=== PATIENT | female | born 1985 | race Caucasian/White ===

== ENCOUNTER 2019-05-05 15:26 | Emergency (ER) | payer OTHER ==
[2019-05-05] MEDS ORDERED: ONDANSETRON 4 MG/2 ML VIAL IVPUSH ONE (15:40)
[2019-05-05] MEDS ORDERED: SODIUM CHLORIDE 1,000 ML IV STA (15:40)
--- NOTE | 2019-05-05 15:40 | PDOC ---
Rapid Medical Evaluation Time Seen by Provider: 05/05/19 15:29 Medical Evaluation: 05/05/19 15:38 CC: epigastric pain with N/V/D x1 day PE: suprapubic tenderness Orders: labs, urine Patient will proceed to ED for further evaluation. Discharge Disposition - Diagnosis Abdominal pain - Referrals - Patient Instructions - Post Discharge Activity
[2019-05-05 15:41] VITALS: BP 111/71; PULSE 94; TEMP 98.8; BMI 20.2
[2019-05-05] MEDS ORDERED: FAMOTIDINE 20 MG/50 ML IVPB 20 MG/50 ML MG IVPB ONE ×2 (16:14→16:33)
[2019-05-05] MEDS ORDERED: MAG HYDROX/AL HYDROX/SIMETH -MYLANTA- ORAL SUSPENSION PO ONE (16:14)
[2019-05-05 16:33] LABS: BASO % 0.2 % (0-2.0); EOS % 0.1 % (0-4.5); HEMATOCRIT 45.4 % (32.4-45.2); HEMOGLOBIN 14.8 GM/dL (10.7-15.3); LYMPH % 10.4 % (8-40); MCH 32.2 pg (25.7-33.7); MCHC 32.5 g/dl (32.0-36.0); MEAN CELL VOLUME 98.9 fl (80-96); MEAN PLT VOLUME 10.9 fl (7.5-11.1); MONO % 3.6 % (3.8-10.2); NEUT % 85.7 % (42.8-82.8); PLATELET COUNT 284 K/MM3 (134-434); RBC 4.59 M/mm3 (3.60-5.2); RDW 14.2 % (11.6-15.6); WHITE BLOOD COUNT 7.3 K/mm3 (4.0-10.0)
[2019-05-05] MEDS ORDERED: ONDANSETRON 4 MG/2 ML VIAL ONE (16:33)
[2019-05-05] MEDS ORDERED: MAG HYDROX/AL HYDROX/SIMETH 30 ML UNIT-DOSE CUP ONE (16:33)
[2019-05-05 16:39] LABS: URINE APPEARANCE CLOUDY; URINE BILIRUBIN NEGATIVE (NEGATIVE); URINE COLOR DK YELLOW; URINE GLUCOSE (UA) NEGATIVE (NEGATIVE); URINE KETONE 1+ (NEGATIVE); URINE LEUK ESTERASE NEGATIVE (NEGATIVE); URINE NITRITE NEGATIVE (NEGATIVE); URINE PROTEIN TRACE (NEGATIVE)
--- NOTE | 2019-05-05 16:41 | PDOC ---
History of Present Illness - General History Source: Patient Exam Limitations: No Limitations - History of Present Illness Initial Comments: 05/05/19 16:37 Patient is a 34-year-old female who presents to the ED with complaint of epigastric abdominal pain since yesterday. She states she has a history of chronic gastritis and was taking open resolved but got in 2018 and stopped taking it. She never resumed it. She does admit to several episodes of vomiting and had a few episodes of diarrhea today. She denies any blood in her stool or vomitus. She denies any fevers or chills. The patient states her pain is primarily in her epigastrium. The patient does admit to some suprapubic abdominal tenderness but denies any dysuria or hematuria. She denies any vaginal complaints. <Caterina Earl - Last Filed: 05/05/19 18:08> <Pamella Ko - Last Filed: 05/05/19 18:17> - General Chief Complaint: Pain, Acute Stated Complaint: ABD PAIN/VOMITING Time Seen by Provider: 05/05/19 15:29 Past History - Past Medical History COPD: No GI Disorders: Yes (gastritis) - Surgical History Abdominal Surgery: (b/l filopian tubes removed) - Psycho Social/Smoking Cessation Hx Smoking History: Never smoked Hx Alcohol Use: No Drug/Substance Use Hx: No <Caterina Earl - Last Filed: 05/05/19 18:08> <Pamella Ko - Last Filed: 05/05/19 18:17> - Past Medical History Allergies/Adverse Reactions: Allergies Allergy/AdvReac Type Severity Reaction Status Date / Time oxycodone Allergy Verified 05/05/19 15:41 Home Medications: Ambulatory Orders Famotidine [Pepcid] 20 mg PO BID #14 tablet 05/05/19 Omeprazole 20 mg PO DAILY #14 tablet. 05/05/19 Review of Systems - Review of Systems Comments:: 05/05/19 16:38 - Review of Systems Able to Perform ROS?: Yes Constitutional: No: Fever, Chills, Loss of Appetite, Night Sweats, Weakness HEENTM: No: Eye Pain, Vision changes, Ear Pain, Throat Pain, Throat Swelling, Mouth Pain, Difficulty Swallowing Respiratory: No: Cough, Shortness of Breath, Wheezing, Sputum Production Cardiac (ROS): No: Chest Pain, Chest Tightness, Palpitations, Irregular Heart Beat, Edema ABD/GI: Positive: Nausea, Vomiting, Abdominal Pain, Diarrhea : No Dysuria, No Hematuria, No Frequency, No Urgency Musculoskeletal: No: Muscle Pain, Back Pain, Joint Pain, Muscle Weakness, Neck Pain Integumentary: No: Lesions, Rash Neurological: No: Headache, Numbness, Tingling, Weakness, Speech Difficulties <Caterina Earl - Last Filed: 05/05/19 18:08> *Physical Exam - Vital Signs Last Vital Signs Temp Pulse Resp BP Pulse Ox 98.8 F 94 H 16 111/71 95 05/05/19 15:37 05/05/19 15:37 05/05/19 15:37 05/05/19 15:37 05/05/19 15:37 - Physical Exam 05/05/19 16:39 - Physical Exam General Appearance: Nourished, Appropriately Dressed, No Distress HEENT: EOMI, Normal Voice, No Muffled/Hoarse voice, No Nasal Congestion, No Rhinorrhea, Hearing Grossly Normal Neck: Supple, No Lymphadenopathy (R), No Lymphadenopathy (L), No Rigidity, No Decreased range of motion Respiratory/Chest: Lungs Clear, Normal Breath Sounds. No Respiratory Distress, No Accessory Muscle Use Cardiovascular: Regular Rhythm, Regular Rate, S1, S2 Gastrointestinal/Abdominal: Normal Bowel Sounds, Soft. No Guarding, No Rebound , No Rigidity; significant epigastric abdominal tenderness to palpation. Mild suprapubic abdominal tenderness to palpation. No rebound or rigidity. Moderate voluntary guarding. Musculoskeletal: Normal Inspection. No Decreased Range of Motion Extremity: Normal Capillary Refill, Normal Inspection Integumentary: Normal Color, Dry. No Rash Neurologic: supply chain tech II-XII NML intact, Fully Oriented, Alert, Normal Mood/Affect, Normal Response <Caterina Earl D - Last Filed: 05/05/19 18:08> - Vital Signs Last Vital Signs Temp Pulse Resp BP Pulse Ox 98.8 F 94 H 16 111/71 95 05/05/19 15:37 05/05/19 15:37 05/05/19 15:37 05/05/19 15:37 05/05/19 15:37 <Pamella Ko - Last Filed: 05/05/19 18:17> ED Treatment Course - LABORATORY CBC & Chemistry Diagram: 05/05/19 15:50 05/05/19 15:50 <Caterina Earl - Last Filed: 05/05/19 18:08> - LABORATORY CBC & Chemistry Diagram: 05/05/19 15:50 05/05/19 15:50 - ADDITIONAL ORDERS Additional order review: Laboratory Results 05/05/19 05/05/19 15:50 15:50 Sodium 137 Potassium 4.1 Chloride 99 Carbon Dioxide 29 Anion Gap 8 BUN 21.0 H Creatinine 0.9 Est GFR (CKD-EPI)AfAm 97.37 Est GFR (CKD-EPI)NonAf 84.01 Random Glucose 100 Calcium 10.0 Total Bilirubin 1.0 AST 23 ALT 31 Alkaline Phosphatase 106 Total Protein 8.1 Albumin 4.2 Lipase 102 Urine Color Dk yellow Urine Appearance Cloudy Urine pH 5.0 Ur Specific [place] 1.038 H Urine Protein Trace Urine Glucose (UA) Negative Urine Ketones 1+ H Urine Blood Negative Urine Nitrite Negative Urine Bilirubin Negative Urine Urobilinogen 1.0 Ur Leukocyte Esterase Negative 05/05/19 15:50 RBC 4.59 MCV 98.9 H MCHC 32.5 RDW 14.2 MPV 10.9 Neutrophils % 85.7 H Lymphocytes % 10.4 Monocytes % 3.6 L Eosinophils % 0.1 Basophils % 0.2 - Medications Given in the ED: ED Medications Discontinued Medications Generic Name Dose Route Start Last Admin Trade Name Freq PRN Reason Stop Dose Admin Al Hydroxide/Mg Hydroxide 30 ml 05/05/19 16:14 05/05/19 17:15 Mylanta Suspension - PO 05/05/19 16:15 30 ml ONCE ONE Administration Sodium Chloride 1,000 mls @ 1,000 mls/hr 05/05/19 15:40 05/05/19 17:15 Normal Saline - IV 05/05/19 16:39 1,000 mls/hr ASDIR STA Administration Famotidine/Sodium Chloride 20 mg in 50 mls @ 100 mls/hr 05/05/19 16:14 17:15 Pepcid 20 Mg Premixed Ivpb - IVPB 05/05/19 16:43 100 mls/hr ONCE ONE Administration Ondansetron HCl 4 mg 05/05/19 15:40 05/05/19 17:15 Zofran Injection IVPUSH 05/05/19 15:41 4 mg ONCE ONE Administration <Pamella Ko - Last Filed: 05/05/19 18:17> Medical Decision Making - Medical Decision Making 05/05/19 16:40 Assessment: Patient is a 34-year-old female with epigastric abdominal pain, vomiting and diarrhea. She has a history of chronic gastritis. Plan: -Saline lock and IV fluids -Labs ordered -Zofran, Pepcid, Maalox ordered -Will reassess 05/05/19 18:08 The patient has been made aware that her labs are all stable. She is feeling a lot better than she did when she first came in. Her epigastric abdominal pain is significantly decreased. She has tolerated p.o. fluids in the ED. She does state that she still has some burning sensation in her stomach but it is much better. We will discharge the patient with a prescription for Pepcid and omeprazole and have her follow-up with her primary doctor. We will also give her GI referral. She understands and agrees with this treatment plan and she is stable for discharge. <Caterina Earl - Last Filed: 05/05/19 18:08> - Medical Decision Making The patient was seen and evaluated in conjunction with midlevel provider under my direct supervision, ancillary studies were reviewed. I agree with the plan as outlined with MELVIN Earl. HPI, workup/dispo as outlined. VS reviewed, wnl. anticipate discharge, pcp followup, return precautions 05/05/19 18:17 <Pamella Ko - Last Filed: 05/05/19 18:17> Discharge - Discharge Information Problems reviewed: Yes <Caterina Earl - Last Filed: 05/05/19 18:08> - Admission No <Pamella Ko - Last Filed: 05/05/19 18:17> - Discharge Information Clinical Impression/Diagnosis: Abdominal pain, Epigastric abdominal pain Condition: Stable Disposition: HOME - Additional Discharge Information Prescriptions: Famotidine [Pepcid] 20 mg PO BID #14 tablet Omeprazole 20 mg PO DAILY #14 tablet.dr - Follow up/Referral Referrals: Winston Batista MD [Staff Physician] - 1 week - Patient Discharge Instructions Patient Printed Discharge Instructions: DI for Gastritis Additional Instructions: Eat a bland diet and avoid acidic, spicy, greasy, fatty, caffeinated foods. Drink plenty of fluids. Take the Pepcid and omeprazole as prescribed. Follow- up with your primary doctor within 1 to 2 days for repeat evaluation. You have been given a referral to a GI doctor for further evaluation and treatment. Return to the emergency department for high fevers, shaking chills, profuse vomiting, severe abdominal pain or any other worsening symptoms. - Post Discharge Activity Work/Back to School Note: Back to Work
[2019-05-05 16:58] LABS: ALBUMIN 4.2 g/dl (3.4-5.0); CREATININE 0.9 mg/dL (0.55-1.3); POTASSIUM 4.1 mmol/L (3.5-5.1); TOT PROT 8.1 g/dl (6.4-8.2)
[2019-05-05 17:37] LABS: PLATELET ESTIMATE ADEQUATE
== END 2019-05-05 18:41 | disposition home or self-care (01) ==
LOC: JER 15:26
PROC: 3E033GC Introduction of Other Therapeutic Substance into Peripheral Vein, Percutaneous Approach (ICD-10-PCS; principal; 2019-05-05)
DX: K29.70 Gastritis, unspecified, without bleeding (principal); R10.13 Epigastric pain; Z90.79 Acquired absence of other genital organ(s)
CPT/HCPCS: 36415; 80053; 81003; 83690; 85025; 87086; 99284-25; J7030

== ENCOUNTER 2020-01-21 17:31 | Emergency (ER) | payer OTHER ==
[2020-01-21 17:40] VITALS: BMI 20.2
[2020-01-21] MEDS ORDERED: SODIUM CHLORIDE 1,000 ML IV STA (18:22)
[2020-01-21 18:59] LABS: BASO % 0.5 % (0-2.0); EOS % 0.9 % (0-4.5); HEMATOCRIT 42.1 % (32.4-45.2); HEMOGLOBIN 13.9 GM/dL (10.7-15.3); LYMPH % 32.7 % (8-40); MCH 33.1 pg (25.7-33.7); MEAN CELL VOLUME 100.3 fl (80-96); MEAN PLT VOLUME 11.6 fl (7.5-11.1); MONO % 7.6 % (3.8-10.2); NEUT % 58.3 % (42.8-82.8); PLATELET COUNT 198 K/MM3 (134-434); RDW 13.8 % (11.6-15.6); WHITE BLOOD COUNT 5.5 K/mm3 (4.0-10.0)
[2020-01-21 19:07] LABS: INR 1.01 (0.83-1.09); PROTHROMBIN TIME (PATIENT) 12.4 SEC (9.7-13.0)
[2020-01-21 19:10] LABS: ACTIVATED PTT 29.2 SECONDS (25.2-36.5)
[2020-01-21 19:18] LABS: CHLORIDE 102 mmol/L (98-107); POTASSIUM 4.6 mmol/L (3.5-5.1); SODIUM 138 mmol/L (136-145)
[2020-01-21 19:22] LABS: ALBUMIN 4.2 g/dl (3.4-5.0); ANION GAP 5 MMOL/L (8-16); BLOOD UREA NITROGEN 22.6 mg/dL (7-18); CALCIUM 9.1 mg/dL (8.5-10.1); CO2 30 mmol/L (21-32); GLUCOSE,RANDOM 83 mg/dL (74-106); MAGNESIUM 2.1 mg/dL (1.8-2.4)
[2020-01-21 19:26] LABS: SGOT/AST 20 U/L (15-37); SGPT/ALT 18 U/L (13-61)
[2020-01-21 19:27] LABS: BILIRUBIN,TOTAL 0.3 mg/dL (0.2-1); TOT PROT 7.9 g/dl (6.4-8.2)
[2020-01-21 19:28] LABS: ALK PHOS 90 U/L (45-117)
[2020-01-21 21:30] LABS: EPI CELLS 6 /uL (0-25.1); HYALINE CASTS 0 /uL (0-3.1); PH,URINE 6.5 (5.0-8.0); URINE APPEARANCE CLEAR; URINE BACTERIA 43 /uL (0-1359); URINE BILIRUBIN NEGATIVE (NEGATIVE); URINE COLOR YELLOW; URINE GLUCOSE (UA) NEGATIVE (NEGATIVE); URINE KETONE NEGATIVE (NEGATIVE); URINE LEUK ESTERASE NEGATIVE (NEGATIVE); URINE NITRITE NEGATIVE (NEGATIVE); URINE PROTEIN NEGATIVE (NEGATIVE); URINE RBC 2 /uL (0-23.9); URINE UROBILINOGEN 0.2 mg/dL (0.2-1.0); URINE WBC 2 /uL (0-25.8)
[2020-01-21 22:02] VITALS: BP 118/67; PULSE 72; TEMP 98.4
== END 2020-01-21 22:02 | disposition home or self-care (01) ==
LOC: JER 17:31
PROC: 3E0337Z Introduction of Electrolytic and Water Balance Substance into Peripheral Vein, Percutaneous Approach (ICD-10-PCS; principal; 2020-01-21)
DX: R55 Syncope and collapse (principal)
CPT/HCPCS: 36415; 71046-TC-FY; 80053; 81003; 82550; 83735; 84443; 84484; 84703; 85025; 85379; 85610; 85730; 87077; 87086; 93005; 93010; 99285-25